=== PATIENT | female | born 1995 | race Caucasian/White ===

== ENCOUNTER 2017-01-02 16:10 | Emergency (ER) | payer BC ==
[2017-01-02 17:49] VITALS: BP 120/67
== END 2017-01-02 19:15 | disposition left against medical advice (07) ==
LOC: UCEAST 16:10
DX: R07.81 Pleurodynia (principal); Z53.21 Procedure and treatment not carried out due to patient leaving prior to being seen by health care provider

== ENCOUNTER 2019-06-28 09:15 | Emergency (ER) | payer BC, OTHER ==
[2019-06-28 09:24] VITALS: BP 131/82
--- NOTE | 2019-06-28 09:35 | UC ---
Dental HPI - HPI Summary HPI Summary: Patient is 24-year-old female presenting with left lower tooth tenderness 2 days. Patient states her wisdom tooth came in over a year ago and she was told to get them removed but did not due to her fear of the dentist. States the left lower wisdom tooth fractured her molar next to it months ago. She states the tooth broke even more a couple days ago and since then she has experienced increasing pain, tenderness, and swelling to her cheek. Denies drainage from tooth. She is concerned for infection. Denies fever, chills, nausea, vomiting. Patient eating and drinking normally. - History of Current Complaint Chief Complaint: UCDentalProblem Stated Complaint: DENTAL COMP Hx Obtained From: Patient Hx Last Menstrual Period: 06/13/19 Onset/Duration: Gradual Onset, Lasting Days Severity: Moderate Pain Intensity: 7 Pain Scale Used: 0-10 Numeric - Allergies/Home Medications Allergies/Adverse Reactions: Allergies Allergy/AdvReac Type Severity Reaction Status Date / Time No Known Allergies Allergy Verified 06/28/19 09:24 PMH/Surg Hx/FS Hx/Imm Hx Previously Healthy: Yes Other History Of: Negative For: Anticoagulant Therapy - Surgical History Surgical History: Yes Surgery Procedure, Year, and Place: liver biopsy -2010 - Family History Known Family History: Positive: Hypertension, Non-Contributory - Social History Alcohol Use: Rare Substance Use Type: None Smoking Status (MU): Light Every Day Tobacco Smoker Amount Used/How Often: 3-4 cig/ day - Immunization History Most Recent Influenza Vaccination: unknown Review of Systems All Other Systems Reviewed And Are Negative: Yes Constitutional: Positive: Negative. Negative: Fever, Chills ENT: Positive: Dental Pain. Negative: Sore Throat, Sinus Pain/Tenderness Respiratory: Positive: Negative Cardiovascular: Positive: Negative Gastrointestinal: Positive: Negative. Negative: Vomiting, Nausea Musculoskeletal: Positive: Negative Neurological: Positive: Negative. Negative: Headache Physical Exam Triage Information Reviewed: Yes Appearance: Well-Appearing, No Pain Distress, Well-Nourished Vital Signs: Initial Vital Signs Temp 98 F 06/28/19 09:21 Pulse 88 06/28/19 09:21 Resp 15 06/28/19 09:21 BP 131/82 06/28/19 09:21 Pulse Ox 100 06/28/19 09:21 Vital Signs Reviewed: Yes Eyes: Positive: Conjunctiva Clear ENT: Positive: Hearing grossly normal, Pharynx normal, Dental tenderness, Uvula midline. Negative: Pharyngeal erythema, Tonsillar swelling, Tonsillar exudate, Trismus, Muffled voice, Hoarse voice Dental: Positive: Gross Decay/Caries @ - tooth #17 and #18, Dental Fracture @ - Tooth #18, Cellulitis @ - left lower gumline. Negative: Abscess @, Cervical Lymphadenopathy, Bleeding Neck exam: Normal Neck: Positive: Supple, Nontender, No Lymphadenopathy Respiratory Exam: Normal Respiratory: Positive: Lungs clear, Normal breath sounds, No respiratory distress Cardiovascular Exam: Normal Cardiovascular: Positive: RRR. Negative: Tachycardia Neurological: Positive: Alert Psychological: Positive: Age Appropriate Behavior Dental Complaint Course/Dx - Course Course Of Treatment: I'm treating with penicillin VK for dental infection. Instructed patient to follow up with dentist as soon as possible for further evaluation and treatment. Instructed her to return or go to the emergency room if symptoms worsen. She voiced understanding and agreed with the treatment plan. - Differential Dx/Diagnosis Provider Diagnosis: Fractured tooth, Infected dental caries Discharge ED - Sign-Out/Discharge Documenting (check all that apply): Patient Departure All imaging exams completed and their final reports reviewed: No Studies - Discharge Plan Condition: Stable Disposition: HOME Prescriptions: Penicillin VK 500 MG TAB(NF) [Penicillin VK 500 mg Tab] 500 mg PO TID #21 tab Patient Education Materials: Dental Abscess (ED), Toothache (ED) Referrals: Care [facility] [Outside] - If Needed [facility] [place] [facility] REFERRAL [Outside] - If Needed Additional Instructions: As discussed, take the antibiotic as prescribed for the treatment of your dental infection. Warm salt water gargles may also help alleviate symptoms. Follow up with your dentist as soon as possible for further evaluation and treatment. Go to the emergency room if you experience worsening pain, fever, increasing redness and warmth to the area, drainage, or nausea and vomiting. - Billing Disposition and Condition Condition: STABLE Disposition: Home - Attestation Statements Provider Attestation: I was available for consult. This patient was seen by the [facility]. The patient was not presented to, seen by, or examined by me. -Collette
== END 2019-06-28 09:59 | disposition home or self-care (01) ==
LOC: UCEAST 09:15
DX: S02.5XXA Fracture of tooth (traumatic), initial encounter for closed fracture (principal); K02.9 Dental caries, unspecified; F17.210 Nicotine dependence, cigarettes, uncomplicated; X58.XXXA Exposure to other specified factors, initial encounter; Y92.9 Unspecified place or not applicable
CPT/HCPCS: 99212; G0463

== ENCOUNTER 2022-07-23 08:46 | Inpatient (IN) ==
[2022-07-23] MEDS ORDERED: Lactated Ringers 1000 ml BAG 1,000 ML IV ONE (10:19)
[2022-07-23] MEDS ORDERED: Buffered Lidocaine 1% SYRIN 1 ml INTRADERM ONE (10:19)
[2022-07-23 10:32] LABS: Urine Appearance Cloudy; Urine Bilirubin Negative (Negative); Urine Blood Negative (Negative); Urine Color Yellow; Urine Glucose Negative (Negative); Urine Ketones Negative (Negative); Urine Nitrite Negative (Negative); Urine Protein 1+(30 mg/dL) (Negative); Urine Specific Gravity 1.017 (1.002-1.030); Urine Urobilinogen Negative (Negative)
[2022-07-23 10:48] LABS: Urine Benzodiazepine Screen None Detected (None Detect); Urine Cannabinoids Screen None Detected (None Detect); Urine Opiates Screen None Detected (None Detect)
[2022-07-23 10:56] LABS: Urine Bacteria 1+ (Absent); Urine Red Blood Cell 1+(3-5/hpf) (Absent); Urine Squamous Epithelial Cell Present (Absent); Urine White Blood Cell Trace(0-5/hpf) (Absent)
[2022-07-23] MEDS ORDERED: Lactated Ringers 1000 ml BAG 1,000 ML IV SCH ×2 (11:00→23:00)
[2022-07-23 11:18] LABS: ABS Eosinophils 0.1 10^3/ul (0-0.6); ABS Lymphocytes 1.4 10^3/ul (1.0-4.8); ABS Monocytes 0.7 10^3/ul (0-0.8); ABS Neutrophils 15.7 10^3/ul (1.5-7.7); Eosinophil % 0.7 %; Hematocrit 40 % (35-47); Hemoglobin 13.3 g/dL (12.0-16.0); Lymphocyte % 7.8 %; Mean Corpuscular HGB Conc 34 g/dL (31-36); Mean Corpuscular Hemoglobin 28 pg (27-31); Mean Corpuscular Volume 84 fL (80-97); Mean Platelet Volume 8.9 fL (7.4-10.4); Platelet Count 220 10^3/uL (150-450); Red Blood Count 4.73 10^6 /uL (3.70-4.87); Red Cell Distribution Width 13 % (10-15)
[2022-07-23 11:49] LABS: Albumin 4.1 g/dL (3.2-5.2); Albumin/Globulin Ratio 1.5 (1-3); Calcium 9.7 mg/dL (8.6-10.3); Globulin 2.7 g/dL (2-4); Potassium 4.3 mmol/L (3.5-5.0); Total Bilirubin 0.4 mg/dL (0.2-1.0); Total Protein 6.8 g/dL (6.4-8.9); Uric Acid 6.3 mg/dL (2.3-6.6); eGFR CKD-EPI 130.1 (>60)
[2022-07-23] MEDS ORDERED: Oxytocin in LR 20,000 MILLI.UNIT/1,000 ML BAG IV ONE (19:04)
[2022-07-23] MEDS ORDERED: Oxytocin 10 UNITS/ML 1 ML VIAL ONE (21:27)
[2022-07-23] MEDS ORDERED: Dibucaine 1% OINT 28.35 GM TUBE ONE (22:06)
[2022-07-23] MEDS ORDERED: Witch Hazel PAD JAR ONE (22:06)
[2022-07-23] MEDS ORDERED: Glycerin ADULT 2.4 gm SUPP PR PRN (22:14)
[2022-07-23] MEDS ORDERED: Varicella Virus Vaccine Live 0.5 ML VIAL SUBCUT ONE (22:14)
[2022-07-23] MEDS ORDERED: Dibucaine 1% OINT 28.35 GM TUBE PR PRN (22:14)
[2022-07-23] MEDS ORDERED: Witch Hazel PAD JAR TOPICAL PRN (22:14)
[2022-07-24 07:12] LABS: ABS Eosinophils 0.1 10^3/ul (0-0.6); ABS Lymphocytes 2.2 10^3/ul (1.0-4.8); ABS Monocytes 1.2 10^3/ul (0-0.8); Eosinophil % 0.4 %; Hematocrit 35 % (35-47); Lymphocyte % 10.5 %; Mean Corpuscular HGB Conc 34 g/dL (31-36); Mean Corpuscular Hemoglobin 29 pg (27-31); Mean Corpuscular Volume 84 fL (80-97); Mean Platelet Volume 8.8 fL (7.4-10.4); Platelet Count 217 10^3/uL (150-450); Red Cell Distribution Width 13 % (10-15); White Blood Count 20.6 10^3/uL (3.5-10.8)
[2022-07-25 08:44] VITALS: BP 146/81
== END 2022-07-25 14:00 | disposition home or self-care (01) | DRG 560 ==
LOC: MCHOBOUT 08:46 → MCHOB 09:32
PROVIDERS: ADMIT Midwife; ATTEND Midwife